=== PATIENT | female | born 1990 | race Caucasian/White ===

== ENCOUNTER 2017-01-13 13:40 | Emergency (ER) | payer MEDICAID ==
[~2017-01-13] VITALS: Ht 162.6 cm; Wt 79.5 kg
[2017-01-13 13:40] VITALS: Ht 162.6 cm; Wt 79.5 kg
--- OUTSIDE RECORDS SUMMARY | 2017-01-13 13:44 | XMS REPORT | Continuity of Care Document ---
Author Author [facility] Organization [facility] Address Unknown Phone Unavailable Care Team Providers Care Insurance Solicitor Name Role Phone Elaina Holguin Primary Care Physician [phone] Source Comments Some departments are not documenting in the electronic medical record. If you do not see the information that you expected, contact Release of Information in the Health Information Management department at [phone] for further assistance in locating additional records.[facility] Active Allergies and Adverse Reactions Allergen Noted Date Severity Reactions Comments Codeine 12/20/2015 Medium HIVES, ITCHING Darvocet 01/19/2016 High ANAPHYLAXIS Tramadol 12/20/2015 Low SEE COMMENTS lowers seizure threshold Current Medications Prescription Sig. Disp. Refills Start End Date Status Date DEPO-PROVERA IM Inject to area(s) as Active directed. lacosamide (VIMPAT) 200 Take 200 mg by mouth Active mg tab twice daily. rizatriptan (MAXALT) 10 Take 10 mg by mouth once Active mg tablet as needed (May repeat x 2 doses. Maximum 30mg/day). May repeat in 2 hours in needed docusate (COLACE) 100 mg Take 1 Cap by mouth twice 180 Cap 3 01/22/20 Active capsule daily. 16 oxyCODONE (ROXICODONE) 5 Take 1-2 Tabs by mouth 42 Tab 0 03/27/20 Active mg tablet every 4 hours as needed 16 for Pain (Release for fill on 04/06; Continue Taper schedule3/day x 7d; 2/d x 7d; 1/d x 7d) Active Problems Problem Noted Date Pseudarthrosis after fusion or arthrodesis (HCC) 01/19/2016 Scoliosis (and kyphoscoliosis), idiopathic 02/17/2008 Social History Tobacco Use Types Packs/Day Years Used Date Never Smoker Alcohol Use Drinks/Week oz/Week Comments No Last Filed Vital Signs Vital Sign Reading Time Taken Blood Pressure 122/65 01/22/2016 2:21 AM CDT Pulse 100 01/22/2016 2:21 AM CDT Temperature 36.8 C (98.3 F) 01/22/2016 2:21 AM CDT Respiratory Rate 18 12/20/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
--- NOTE | 2017-01-13 13:51 | ERPDOC ---
Departure Disposition Decision Date: Jan 13, 2017 Disposition Decision Time: 15:56 (THOMAS BORREGO APRN) Disposition: 01 DISCHARGED HOME, SELF-CARE Impression Impression (THOMAS BORREGO APRN) Impression: Primary Impression: Epilepsy Condition: Stable Seen By: Mid-level only (THOMAS BORREGO APRN) Referrals: AMBROCIO MARTINEZ APRN (PCP) FARIHA PINA MD Patient Instructions: Epilepsy (ED) Problems/Meds/Labs Reviewed?: Yes Medications reviewed and manag: Yes (THOMAS BORREGO APRN) Additional Instructions: 1. Continue your seizure medications as prescribed 2. Call Dr. Pina's office in the morning to arrange follow up 3. Try ice and heat to your back for pain 4. Do not drive. Follow up care ordered?: Yes Mental Status: Alert, Oriented (THOMAS BORREGO APRN) HPI - CVA/Neuro General Stated Complaint: EPILEPSY, CONFUSION Time Seen by Provider: 13:50 Source: patient, family () Exam Limitations: no limitations (THOMAS BORREGO APRN) Time Seen by Provider: 13:50 (LEANDRO BRANCH MD) HPI - CVA/NEURO Initial Comments Jaida is a 26 year old female who reports a two year history of epilepsy identifying no known cause for the symptoms. Sees Dr. Pina and is on Topamax and Vimpat for seizures. States no missed dosages. Also has history of chronic back pain and has had two prior back surgeries and takes Oxycodone prn for pain. States yesterday began having "tremors" and "convulsions" like she normally does. She never loses consciousness and never loses control of bowel or bladder. Additionally reports taking Clonazepam which Dr. Pina prescribes for her when she has anxiety related to her condition. She took 1 mg last night at bedtime. [place] see her grandma and didn't know why she was there at the [place] so brought her to the ER from [place] to get checked out. On initial encounter, patient has two episodes of jolting head back in bed without loss of consciousness. Asking for pain medication for chronic back pain which is exacerbated by these jolts she is having. Allergic to acetaminophen, codeine, morphine, darvocet, tramadol and toradol. No recent fevers. No n/v/d. Occurred At: home Onset/Timing: Changing over time Duration: other (2 days) Pain/Severity Scale: Now: 8/10 Associated Symptoms: confusion, seizures, weakness, DENIES: loss of consciousness, numbness in legs/feet Modifying Factors: Stress (THOMAS BORREGO ELECTRICAL CONTROLS ENGINEER) Allergies: Coded Allergies: acetaminophen (Verified Allergy, Unknown, 01/13/17) codeine (Verified Allergy, Unknown, 01/13/17) ketorolac (Verified Allergy, Unknown, 01/13/17) morphine (Verified Allergy, Unknown, THROAT SWELLING, 01/13/17) propoxyphene (Verified Allergy, Unknown, 01/13/17) tramadol (Verified Allergy, Unknown, 01/13/17) Past History Past Medical History Neurological: seizures Musculoskeletal: back pain (ELMO,THOMAS ELECTRICAL CONTROLS ENGINEER) Surgical History General: back (THOMAS BORREGO ELECTRICAL CONTROLS ENGINEER) Social History Substance Use Type: opiates (prescribed) Marital Status: Sexuality: male partner Current Occupational Status: unemployed (THOMAS BORREGO ELECTRICAL CONTROLS ENGINEER) Review of Systems Constitutional Constitutional: DENIES: dizziness, fever (LINDA BORREGOARA ELECTRICAL CONTROLS ENGINEER) Cardiovascular Cardiac: DENIES: chest pain, dyspnea on exertion (THOMAS BORREGO ELECTRICAL CONTROLS ENGINEER) Pulmonary Respiratory: DENIES: cough, dyspnea (THOMAS BORREGO ELECTRICAL CONTROLS ENGINEER) GI Upper Abdomen: DENIES: vomiting Lower Abdomen: DENIES: diarrhea (THOMAS BORREGO ELECTRICAL CONTROLS ENGINEER) Musculoskeletal General: pain (back) (THOMAS BORREGO ELECTRICAL CONTROLS ENGINEER) Integumentary Skin: DENIES: rash (THOMAS BORREGO ELECTRICAL CONTROLS ENGINEER) Neurological General: seizures, tremor, DENIES: headache, numbness (LINDA BORREGOARA ELECTRICAL CONTROLS ENGINEER) Psychiatric Psychiatric: anxiety, memory impairment, nervousness (THOMAS BORREGO ELECTRICAL CONTROLS ENGINEER) All other Systems All Other Systems: Reviewed and Negative (THOMAS BORREGO ELECTRICAL CONTROLS ENGINEER) Physical Exam General General Nourishment: well nourished, well developed, appears stated age, acute distress (appears acutely anxious) (THOMAS BORREGO ELECTRICAL CONTROLS ENGINEER) Vitals and Pain First Documented Vital Signs Date Time Temp Pulse Resp B/P Pulse Ox O2 Delivery O2 Flow Rate FiO2 01/13/17 13:40 98.9 131 30 152/95 100 Room Air (LEANDRO BRANCH MD) Vitals and Pain Weight: Kilograms: Height (feet): Height (inches): Triage Pain Scale: (BORREGO,THOMAS ELECTRICAL CONTROLS ENGINEER) Eyes (brief) Eyes Brief: found: EOMI, PERRL, not found: scleral icterus (BORREGO,THOMAS ELECTRICAL CONTROLS ENGINEER) ENMT (brief) ENMT Brief: FOUND: mucosa moist, NOT FOUND: nasal exudate, pharnyx erythema ( BORREGO,THOMAS ELECTRICAL CONTROLS ENGINEER) Neck (brief) Neck: FOUND: trachea midline, NOT FOUND: adenopathy, thyromegaly (BORREGO,THOMAS ELECTRICAL CONTROLS ENGINEER) Respiratory (brief) Respiratory: FOUND: clear all kraus, equal bilaterally (BORREGO,THOMAS ELECTRICAL CONTROLS ENGINEER) Cardiovascular (brief) Cardiac: FOUND: other (tachycardia-) (BORREGO,THOMAS ELECTRICAL CONTROLS ENGINEER) Abdomen (brief) Abdominal Brief: FOUND: bowel normo active x4, soft, NOT FOUND: tender (BORREGO, THOMAS ELECTRICAL CONTROLS ENGINEER) Lymphatic (brief) Lymphatic Brief: NOT FOUND: lymphedema (BORREGO,THOMAS ELECTRICAL CONTROLS ENGINEER) Musculoskeletal (brief) Musculoskeletal Brief: FOUND: tenderness (low back) (BORREGO,THOMAS ELECTRICAL CONTROLS ENGINEER) Integumentary (brief) Integumentary Brief: FOUND: dry, pink, warm, NOT FOUND: rash (BORREGO,THOMAS ELECTRICAL CONTROLS ENGINEER) Neurologic (brief) Neurological Brief: FOUND: CN w/o gross def to obs (BORREGO,THOMAS ELECTRICAL CONTROLS ENGINEER) Psychiatric (brief) Psychiatric Brief: FOUND: alert, attentive, oriented, NOT FOUND: normal affect (anxious) (BORREGO,THOMAS ELECTRICAL CONTROLS ENGINEER) Differential Diagnoses Considering: Hypo/hypernatremia, Hysteria, Medication Effect, Psychogenic (BORREGO,THOMAS ELECTRICAL CONTROLS ENGINEER) Progress Results/Orders Orders Procedure Category Date Status Time Iv Lock (Ed Only) EDM 01/13/17 Transmitted 13:57 Nothing By Mouth (Ed EDM 01/13/17 Transmitted Only) 13:57 Bmp - Basic Metabolic LAB 01/13/17 Complete Panel 13:57 Ua, Dip Wreflex LAB 01/13/17 Complete Microsc & Provider Relations Specialist 13:57 Drug Screen LAB 01/13/17 Complete Urine-Test At [facility] [place], [place] 13:57 LAB 01/13/17 Complete Qualitative, Serum 13:57 Lorazepam (Ativan) PHA 4/2/17 Complete 14:00 Normal Saline (Normal PHA 01/13/17 Complete Saline Iv) 14:00 EKG EKG 01/13/17 Logged Diazepam (Valium) PHA 01/13/17 Complete 15:15 (LEANDRO BRANCH MD) Lab Results Laboratory Tests Test 01/13/17 14:17 01/13/17 15:12 Turbidity < 20 Sodium Level 149MEQ/L Potassium Level 4.0MEQ/L Chloride Level 111MEQ/L Carbon Dioxide Level 23MEQ/L Anion Gap 15MEQ/L Blood Urea Nitrogen 7.0MG/DL Creatinine 0.8MG/DL Glomerular Filtration Rate Calc 87 BUN/Creatinine Ratio 9RATIO Glucose Level 102MG/DL Calculated Osmolality 284MOSM/KG Calcium Level 10.0MG/DL Icterus Index < 2 Human Chorionic Gonadotropin, Qual Negative Chemistry Specimen Hemolysis < 15 Urine Collection Type Urine Color Yellow Urine Turbidity Clear Urine pH 6.0 Urine Specific [place] 1.010 Urine Protein Negative Urine Glucose (UA) Negative Urine Ketones Negative Urine Blood Negative Urine Nitrite Negative Urine Bilirubin Negative Urine Urobilinogen 0.2EU/DL Urine Leukocyte Esterase Trace Urinalysis Comment Microscopic not ind. Urine Opiates Screen PositiveNG/ML Urine Oxycodone Screen NegativeNG/ML Urine Methadone Screen NegativeNG/ML Urine Propoxyphene Screen NegativeNG/ML Urine Barbiturates Screen NegativeNG/ML Urine Tricyclic Antidepressants NegativeNG/ML Urine Phencyclidine Screen NegativeNG/ML Urine Amphetamines Screen NegativeNG/ML Urine Methamphetamines Screen NegativeNG/ML Urine Benzodiazepines Screen PositiveNG/ML Urine Cocaine Screen NegativeNG/ML Urine Cannabinoids Screen NegativeNG/ML Urine Drug Screen Confirmation Sent out Urine Drug Screen Information Pending (LEANDRO BRANCH MD) Lab Results Laboratory Tests Test 01/13/17 14:17 01/13/17 15:12 Turbidity < 20 Sodium Level 149MEQ/L Potassium Level 4.0MEQ/L Chloride Level 111MEQ/L Carbon Dioxide Level 23MEQ/L Anion Gap 15MEQ/L Blood Urea Nitrogen 7.0MG/DL Creatinine 0.8MG/DL Glomerular Filtration Rate Calc 87 BUN/Creatinine Ratio 9RATIO Glucose Level 102MG/DL Calculated Osmolality 284MOSM/KG Calcium Level 10.0MG/DL Icterus Index < 2 Human Chorionic Gonadotropin, Qual Negative Chemistry Specimen Hemolysis < 15 Urine Collection Type Urine Color Yellow Urine Turbidity Clear Urine pH 6.0 Urine Specific [place] 1.010 Urine Protein Negative Urine Glucose (UA) Negative Urine Ketones Negative Urine Blood Negative Urine Nitrite Negative Urine Bilirubin Negative Urine Urobilinogen 0.2EU/DL Urine Leukocyte Esterase Trace Urinalysis Comment Microscopic not ind. Urine Opiates Screen PositiveNG/ML Urine Oxycodone Screen NegativeNG/ML Urine Methadone Screen NegativeNG/ML Urine Propoxyphene Screen NegativeNG/ML Urine Barbiturates Screen NegativeNG/ML Urine Tricyclic Antidepressants NegativeNG/ML Urine Phencyclidine Screen NegativeNG/ML Urine Amphetamines Screen NegativeNG/ML Urine Methamphetamines Screen NegativeNG/ML Urine Benzodiazepines Screen PositiveNG/ML Urine Cocaine Screen NegativeNG/ML Urine Cannabinoids Screen NegativeNG/ML Urine Drug Screen Confirmation Sent out Urine Drug Screen Information Pending (THOMAS BORREGO APRN) Medications Current ED Medications Lorazepam 1 mg 1 mg O ONCE IV Last administered on 01/13/17 14:13; Start at 14:00; Stop 01/13/17 at 14:01; Status DC Sodium Chloride (Normal Saline IV) 1,000 ml @ 999 mls/hr Q1H1M IV Last administered on 01/13/17 14:12; Start 01/13/17 at 14:00; Stop 01/13/17 at 16:18; Status DC Diazepam (Valium) 2 mg O ONCE IV Last administered on 01/13/17 15:20; Start at 15:15; Stop 01/13/17 at 15:16; Status DC (LEANDRO BRANCH MD) Medications Current ED Medications Lorazepam 1 mg 1 mg O ONCE IV Last administered on 01/13/17 14:13; Start at 14:00; Stop 01/13/17 at 14:01; Status DC Sodium Chloride (Normal Saline IV) 1,000 ml @ 999 mls/hr Q1H1M IV Last administered on 01/13/17 14:12; Start 01/13/17 at 14:00 Diazepam (Valium) 2 mg O ONCE IV Last administered on 01/13/17 15:20; Start at 15:15; Stop 01/13/17 at 15:16; Status DC (THOMAS BORREGO APRN) Progress Progress 1555- Patient states tremors and "convulsions" are gone now after IV Ativan and Valium, however now is in dire need of narcotic pain medication she reports. States ran out at home and has allergies to all non narcotic agents. Advised patient narcotics were not recommended currently with her convulsions and suggested outpatient f/u with Dr. Pina. (THOMAS OBRREGO APRN) Progress Patient's history and exam discussed with ELECTRICAL CONTROLS ENGINEER. Labs reviewed. Agree with care given in ER and discharge plan as outlined. (LEANDRO BRANCH MD) EKG EKG : Rate: >100 Rhythm: sinus [place]: normal QRS: normal Intervals: normal ST/T: non-specific changes Interpreted by: signing physician (THOMAS BORREGO APRN) EKG : Rate: >100 Rhythm: sinus [place]: normal QRS: normal Intervals: normal ST/T: non-specific changes Interpreted by: signing physician EKG Comments no prior EKG to compare (LEANDRO BRANCH MD) THOMAS BORREGO APRN Jan 13, 2017 13:51 LEANDRO BRANCH MD Jan 13, 2017 16:23
--- NOTE | 2017-01-13 13:53 | NUR ---
PROVIDER Edel BORREGO APRN AT BEDSIDE FOR H&P
--- OUTSIDE RECORDS SUMMARY | 2017-01-13 13:58 | XMS REPORT | Continuity of Care Document ---
Author Author [facility] Organization [facility] Address Unknown Phone Unavailable Care Team Providers Care Package Handler Name Role Phone Elaina Holguin Primary Care Physician [phone] Source Comments Some departments are not documenting in the electronic medical record. 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
[2017-01-13] MEDS ORDERED: NORMAL SALINE 1,000 ML IV SCH (14:00)
[2017-01-13] MEDS ORDERED: LORAZEPAM 2 MG/ML INJECTION IV ONE (14:00)
[2017-01-13] MEDS ORDERED: LORA0.5T2 PO (14:15)
[2017-01-13] MEDS ORDERED: LACO200T2 PO (14:15)
[2017-01-13] MEDS ORDERED: RIZA10TA26 PO (14:15)
[2017-01-13] MEDS ORDERED: MEDR150V INJ (14:15)
[2017-01-13] MEDS ORDERED: TOPI100T43 PO (14:15)
[2017-01-13] MEDS ORDERED: ONDA8TAB12 PO (14:15)
[2017-01-13] MEDS ORDERED: IBUP-1724 PO (14:16)
[2017-01-13 14:32] LABS: ANION GAP 15 MEQ/L (5-15); BUN/CREATININE RATIO 9 RATIO (6-26); CHLORIDE 111 MEQ/L (98-107); CO2 - CARBON DIOXIDE 23 MEQ/L (22-30); CREATININE 0.8 MG/DL (0.7-1.2); GLOMERULAR FILTRATION RATE 87; GLUCOSE 102 MG/DL (65-110); SODIUM 149 MEQ/L (134-144)
--- NOTE | 2017-01-13 14:46 | NUR ---
UPDATE PATIENT LYING IN BED, PATIENT REQUESTS MEDICATION FOR THE PAIN IN HER BACK. PATIENT INFORMED THAT PROVIDER HAD ONLY ORDERED ATIVAN AT THIS TIME. BUT RN WILL ASK AGAIN.
[2017-01-13 15:19] LABS: BLOOD, URINE NEGATIVE (NEGATIVE); COLOR,URINE YELLOW (YELLOW); LEUKOCYTE ESTERASE ,URINE TRACE (NEGATIVE); NITRITE,URINE NEGATIVE (NEGATIVE); UROBILINOGEN,URINE 0.2 EU/DL (NORMAL)
[2017-01-13 15:36] LABS: AMPHETAMINE SCREEN,URINE NEGATIVE; BARBITURATE SCREEN,URINE NEGATIVE; BENZODIAZEPINES SCREEN,URINE POSITIVE; COCAINE SCREEN,URINE NEGATIVE; METHADONE SCREEN, URINE NEGATIVE; METHAMPHETAMINE SCREEN, URINE NEGATIVE; OPIATE SCREEN,URINE POSITIVE
[2017-01-13 15:37] LABS: CANNABINOID SCREEN,URINE NEGATIVE; PHENCYCLIDINE SCREEN,URINE NEGATIVE; TRICYCLIC ANTIDEPRESSANT,URINE NEGATIVE
[2017-01-13 16:18] VITALS: BP 140/68; PULSE 108; RESP 21; TEMP 98.9; O2SAT 98
== END 2017-01-13 16:18 | disposition home or self-care (01) ==
LOC: ED 13:40
DX: G40.909 Epilepsy, unspecified, not intractable, without status epilepticus (principal)
CPT/HCPCS: 80048; 80306; 81003; 84703; 93005; 96361; 96374; 96375; 99284; J2060; J3360; J7030